=== PATIENT | male | born 1950 | race Caucasian/White ===

== ENCOUNTER → 2019-10-27 | Outpatient (CLI) | payer OTHER | LOC: M LABSMTC 09:40 | PROVIDERS: ATTEND Anesthesiology | DX: Z01.818 Encounter for other preprocedural examination (principal); Z11.59 Encounter for screening for other viral diseases | CPT/HCPCS: C9803; U0003 ==

== ENCOUNTER 2019-10-30 06:31 | Day surgery (SDC) | payer MEDICARE ==
[~2019-10-30] VITALS: Ht 180.3 cm; Wt 89.4 kg
[2019-10-30] MEDS ORDERED: MIDAZOLAM INJ 2MG/2ML VIAL (J2250 PER 1MG) As Ordered ONE (06:44)
[2019-10-30] MEDS ORDERED: propofoL 200 MG/20 ML VIAL As Ordered ONE (06:44)
[2019-10-30] MEDS ORDERED: fentaNYL 250 MCG/5 ML INJECTION (J3010) As Ordered ONE (06:44)
[2019-10-30] MEDS ORDERED: CEFUROXIME 1MG/0.1ML INTRACAMERAL INJ As Ordered ONE (06:47)
[2019-10-30] MEDS ORDERED: DUOVISC (0.50ML VISCOAT/0.55ML PROVISC) OPHTH KIT As Ordered ONE (06:47)
[2019-10-30] MEDS ORDERED: POVIDONE-IODINE 5% OPHTH PREP SOL 30ML As Ordered ONE (06:47)
[2019-10-30] MEDS ORDERED: PHENYLEPHRINE 2.5% OPHTH SOL 2ML OD ONE (07:00)
[2019-10-30] MEDS ORDERED: TROPICAMIDE 1% OPHTH SOLN 2ML OD ONE (07:00)
[2019-10-30] MEDS ORDERED: PROPARACAINE 0.5% OPHTH SOL 15ML OD ONE (07:00)
[2019-10-30] MEDS ORDERED: OFLOXACIN 0.3 % (OCUFLOX) OPTH SOL 5ML OD ONE (07:00)
[2019-10-30] MEDS ORDERED: BSS IRR 500ML/OMIDRIA 4ML IRR BAG (OR ONLY) (J1097 PER ML) As Ordered ONE (08:19)
[2019-10-30 09:05] VITALS: BP 150/70
--- NOTE | 2019-11-04 14:19 | RO ---
DATE OF PROCEDURE: 10/30/2019 PREOPERATIVE DIAGNOSIS: 1. Visually significant nuclear sclerotic cataract right eye. POSTOPERATIVE DIAGNOSIS: 1. Visually significant nuclear sclerotic cataract right eye. PROCEDURE: 1. Cataract extraction with use of phacoemulsification and placement of intraocular lens, [id number] 22.5 D, right eye. SURGEON: Kal Nguyễn DO APPLICATION TRAINER: None. ANESTHESIA: Local with monitored anesthesia care (MAC), with Omidria (4 mL/500 mL) mixed into irrigation solution. COMPLICATIONS: None. POSTOPERATIVE CONDITION: Stable. INDICATIONS FOR SURGERY: 1. Blurred vision affecting patients activities of daily living. DESCRIPTION OF PROCEDURE: The patient was seen in the preoperative area and properly identified. The correct operative eye was identified and marked. The patient received topical anesthetic, antibiotics, and topical dilating drops. The patient was then transferred to the operating room. The correct side was re-identified, and a time-out was performed. The eye was prepped and draped in a sterile fashion. The eyelids were isolated with Tegaderm tape, and the lids were held open with an adjustable speculum. A 1.0 mm paracentesis incision was made. Intraocular preservative-free Shugarcaine was then injected into the anterior chamber. Viscoelastic was then injected into the anterior chamber through the paracentesis. Using a 2.4 mm sharp-tipped keratome, the anterior chamber was entered via a temporal clear cornea incision. A continuous curvilinear capsulorrhexis was created with Utrata forceps. Hydrodissection was performed with balanced salt solution (BSS) on a blunt cannula until the nucleus was able to rotate freely. The crystalline lens was phacoemulsified and aspirated. Irrigation/aspiration was used to remove the cortical material. Cohesive viscoelastic was placed into the capsular bag to deepen it. The implant was placed into the capsular bag and allowed to unfold. Placement was confirmed by visualizing the anterior capsulorrhexis. Irrigation/aspiration was used to remove the viscoelastic. The clear corneal incision was hydrated with BSS on a blunt cannula. The lens was well positioned. The incisions were then tested for leaks and found to be negative. Cefuroxime was injected into the anterior chamber. The eye was then palpated for appropriate pressure and adjusted accordingly with BSS. The eyelid speculum was then carefully removed. A shield was placed over the eye. The patient tolerated the procedure well and was discharged to the recovery unit in a stable condition.
== END 2019-10-30 09:55 | disposition home or self-care (01) ==
LOC: M SDC 06:31
PROVIDERS: ATTEND Ophthalmology
DX: H25.11 Age-related nuclear cataract, right eye (principal)
CPT/HCPCS: 66984; J1097; J2250; J3010; V2632

== ENCOUNTER → 2019-11-10 | Outpatient (CLI) | payer MEDICARE | LOC: M LABSMTC 09:34 | PROVIDERS: ATTEND Anesthesiology | DX: Z01.818 Encounter for other preprocedural examination (principal); Z11.59 Encounter for screening for other viral diseases ==

== ENCOUNTER 2019-11-13 09:06 | Day surgery (SDC) | payer MEDICARE ==
[~2019-11-13] VITALS: Ht 177.8 cm; Wt 88.8 kg
[~2019-11-13 09:06] MED LIST: CEFUROXIME 1MG/0.1ML INTRACAMERAL INJ As Ordered ONE; DUOVISC (0.50ML VISCOAT/0.55ML PROVISC) OPHTH KIT As Ordered ONE; MIDAZOLAM INJ 2MG/2ML VIAL (J2250 PER 1MG) As Ordered ONE; OFLOXACIN 0.3 % (OCUFLOX) OPTH SOL 5ML OS ONE; PHENYLEPHRINE 2.5% OPHTH SOL 2ML OS ONE; POVIDONE-IODINE 5% OPHTH PREP SOL 30ML As Ordered ONE; PROPARACAINE 0.5% OPHTH SOL 15ML OS ONE; TROPICAMIDE 1% OPHTH SOLN 2ML OS ONE; fentaNYL 100 MCG/2 ML INJECTION (J3010) As Ordered ONE
[2019-11-13] MEDS ORDERED: hydrALAZINE 20MG/ML 1ML VIAL (J0360 PER 20MG) As Ordered ONE (10:59)
[2019-11-13] MEDS ORDERED: DUOVISC (0.50ML VISCOAT/0.55ML PROVISC) OPHTH KIT As Ordered ONE (11:17)
[2019-11-13 12:05] VITALS: BP 148/72
== END 2019-11-13 12:28 | disposition home or self-care (01) ==
LOC: M SDC 09:06
PROVIDERS: ATTEND Ophthalmology
DX: H25.12 Age-related nuclear cataract, left eye (principal); R06.83 Snoring; Z98.84 Bariatric surgery status
CPT/HCPCS: 66984; J0360; J2250; J3010; V2632

== ENCOUNTER → 2020-08-20 | Outpatient (CLI) | payer OTHER ==
--- NOTE | 2020-08-27 00:51 | ECWPNPC ---
PATIENT NAME: MICHELLE QUIJANO : 1950 GENDER: MALE VISIT DATE: 08/20/2020 DISCHARGE DATE: 08/20/20 1136 VISIT LOCKED DATE TIME: PHYSICIAN: AKIKO SOUTH RESOURCE: AKIKO SOUTH REASON FOR APPOINTMENT 1. CERVICAL PAIN- DAUGHTER EDUAR ACCOMPANYING HISTORY OF PRESENT ILLNESS DEPRESSION SCREENING: PHQ-2 (2015 EDITION) LITTLE INTEREST OR PLEASURE IN DOING THINGS?NOT AT ALL FEELING DOWN, DEPRESSED, OR HOPELESS?NOT AT ALL TOTAL SCORE0 GENERAL: PLEASANT 69-YEAR-OLD GENTLEMAN REFERRED BY [facility] TO EVALUATE PERSISTENT NECK PAIN. PAIN BEGAN AFTER A FALL INJURY IN 2019. REPORTS EPISODES OF SEVERE NECK STIFFNESS AND PAIN. PAIN CAUSES INTERMITTENT RIGHT ARM AND FINGER NUMBNESS WELL LEFT SHOULDER PAIN. HE IS VERY ACTIVE AND OPERATES HEAVY EQUIPMENT FREQUENTLY. REVIEWED CT SCAN OF CERVICAL SPINE DONE IN THE EMERGENCY ROOM AFTER HIS FALL. HE IS INTERESTED IN DOING PROCEDURES. FALL RISK SCREENING: SCREENING : ONE FALL WITH INJURY IN THE PAST YEAR. PAIN SCREENING: PATIENT HAS A COMPLAINT OF ACUTE OR CHRONIC PAIN :YES LOCATION OF PAIN:NECK INTENSITY OF PAIN (SCALE OF 1 TO 10):3 WHAT DOES YOUR PAIN FEEL LIKE:SHARP, SHOOTING DURATION:CONTINOUS, CONSTANT, ALL DAY PAIN IS INCREASED BY:ACTIVITIES PAIN IS DECREASED BY:OTHERS HEAT NURSING NOTE: - - -. PAIN CENTER INTAKE QUESTIONS: DO YOU HAVE A HISTORY OF MRSA? :NO DO YOU TAKE A BLOOD THINNERS? :NO DO YOU HAVE ANY BLEEDING DISORDERS? :NO ANY NEW NUMBNESS OR WEAKNESS IN YOUR LEGS OR ARMS? :NO ANY PACEMAKER,DEFIBRILLATOR, OR DORSAL COLUMN STIMULATOR? :NO DO YOU HAVE ANY RASHES OR OPEN SORES? :NO ARE YOU ALLERGIC TO IV DYE? :NO ARE YOU DIABETIC? :NO ANY NEW PROBLEMS WITH YOUR MEDICATIONS? :NO HAVE YOU RECEIVED A VACCINE IN THE PAST 30 DAYS? :NO DO YOU PLAN TO RECEIVE A VACCINE IN THE NEXT 21 DAYS? :NO DO YOU NEED ANY PRESCRIPTION? :NO DO YOU TAKE ANY IMMUNOSUPPRESSIVE MEDICATIONS? :NO CURRENT MEDICATIONS TAKING BARIATRIC FUSION - TABLET CHEWABLE DIRECTED ORALLY NOT-TAKING CYCLOBENZAPRINE HCL 5 MG TABLET 1 TABLET AT BEDTIME NEEDED ORALLY NEEDED ONCE A DAY MEDICATION LIST REVIEWED AND RECONCILED WITH THE PATIENT PAST MEDICAL HISTORY ECZEMA ARTHRITIS HERNIA ACUTE VIRAL PHARYNGITIS SUPERFICAL FOREIGN BODY OG LEFT THUMB INITAL ENCOUNTER AACUTE URI NECK SPRAIN NECK PAIN GASTIC BYPAS TYPE 2 DIABETIC ALLERGIES N.K.D.A. SURGICAL HISTORY GASTIC [place] FAMILY HISTORY FATHER: MOTHER: SON(S): ALIVE DAUGHTER(S): ALIVE 3 SISTER(S) . 1 SON(S) , 1 DAUGHTER(S) - HEALTHY. SOCIAL HISTORY GENERAL: TOBACCO USE ARE YOU A:NONSMOKER LATEX QUESTIONNAIRE LATEX ALLERGY : HAVE YOU EVER DEVELOPED ANY TYPE OF REACTION AFTER HANDLING LATEX PRODUCTS SUCH RUBBER GLOVES, CONDOMS, DIAPHRAGMS, BALLOONS, SOCKS, OR UNDERWEAR?NO LATEX ALLERGY : HAVE YOU EVER DEVELOPED ANY TYPE OF REACTION DURING OR AFTER DENTAL APPOINTMENT, VAGINAL/RECTAL EXAMINATION, SURGICAL PROCEDURE, OR ANY OTHER EXPOSURE?NO LATEX RISK : HAVE YOU EVER HAD ANY DIFFICULTY BREATHING OR HIVES AFTER EATING OR HANDLING ANY FRUITS, OR VEGETABLES; SUCH KIWI, BANANAS, STONE FRUITS, OR CHESTNUTSNO LATEX RISK : DO YOU HAVE A PREVIOUS PERSONAL HISTORY OF MORE THAN NINE SURGERIES, SPINA BIFIDA, OR REPEATED CATHERIZATIONS? NO LATEX RISK : ARE YOU FREQUENTLY EXPOSED TO LATEX PRODUCTS IN YOUR OCCUPATION?NO DATE ASKED : 08/20/2020 ALCOHOL USE: NO. RECREATIONAL DRUG USE DRUG USE?NO LEARNING BARRIERS / SPECIAL NEEDS BARRIERS TO LEARNING?NO HEARING IMPAIRED?NO VISION IMPAIRED?NO READING COGNITIVELY IMPAIRED?NO READINESS TO LEARN?YES LEARNING PREFERENCES?NO LEARNING CAPABILITIES PRESENT?YES EMOTIONAL BARRIERS?NO SPECIAL DEVICES?NO PAPERHANGER NEEDED?NO DOMESTIC VIOLENCE DO YOU FEEL SAFE IN YOUR ENVIRONMENT?YES HOSPITALIZATION/MAJOR DIAGNOSTIC PROCEDURE SEE ABOVE REVIEW OF SYSTEMS CONSTITUTIONAL: ANY RECENT FEVER NO . CHILLS NO . WEIGHT CHANGE OF UNKNOWN REASONS NO . MUSCULOSKELETAL: ANY UNUSUAL JOINT PAIN OR SWELLING NOT MENTIONED NO . SYSTEMIC LUPUS NO . ANY NEUROMUSCULAR DISORDER NOT MENTIONED NO . LYME DISEASE NO . GASTROENTEROLOGY: ANY NEW CHANGE IN BOWEL CONTROL? NO . HISTORY OF LIVER DISORDER NOT MENTIONED NO . HISTORY OF UNUSUAL ABDOMINAL PAIN OR CRAMPING NOT MENTIONED NO . NO CONSTIPATION. GENITOURINARY: ANY NEW CHANGE IN BLADDER CONTROL? NO . ANY RENAL/KIDNEY CONDITON NOT MENTIONED NO . NEUROLOGY: HISTORY OF TBI NOT MENTIONED NO . OTHER NEW NUMBNESS OR PAIN PATTERNS NOT MENTIONED NO . NEW ONSET DIZZINESS OR NEUROLOGICAL CHANGES NOT MENTIONED NO . HISTORY OF SEVERE HEADACHES NOT MENTIONED NO . HISTORY OF STROKE OR NEUROLOGICAL DISORDER NOT MENTIONED NO . CARDIOLOGY: HEART SURGERY NO . CONGESTIVE HEART FAILURE/FLUID OVERLOAD NOT MENTIONED NO . HISTORY OF CHEST PAIN,IRREGULAR HEART BEAT NOT MENTIONED NO . RESPIRATORY: SHORTNESS OF BREATH ON EXERTION, WHEEZES, UNUSUAL COUGH NOT MENTIONED NO . ENDOCRINOLOGY: ADRENAL GLAND OR THYROID DISORDERS NOT MENTIONED NO . UNUSUAL URINATION, DIZZINESS OR LETHARGY NOT MENTIONED NO . VITAL SIGNS WT 204 LBS, HT 5'10, BMI 39.84 INDEX, BP 177/80 MM HG, HR 56 /MIN, RR 18 /MIN, TEMP 97.2 F, OXYGEN SAT % 97%, SAFE IN ENV? (Y/N) YEST.JACOB GRIDER. EXAMINATION GENERAL EXAMINATION: GENERALNO ACUTE DISTRESS, WELL NOURISHED AND HYDRATED. PSYCHAPPROPRIATE MOOD AND AFFECT . NECK:NO LYMPHADENOPATHY, SUPPLE, NO THYROMEGALLY, NO JVD OR BRUITS. LUNGS:CLEAR TO AUSCULTATION BILATERALLY, NO WHEEZES, RHONCHI, RALES. HEART:NO MURMURS, REGULAR RATE AND RHYTHM. MUSCULOSKELETAL: MUSCLE STRENGTH TESTING 5/5 BILATERAL UPPER EXTREMITIES.EQUAL STRONG WRAPPER REWINDER STRENGTH BILATERAL HANDS. CERVICAL:TENDERNESS NOTED OVER CERVICAL SPINE WITH RANGE OF JOINT MOTION OF THE NECK . ASSESSMENTS CERVICALGIA - M54.2 (PRIMARY) TREATMENT CERVICALGIA [facility] MRI SPINE, CERVICAL WITHOUT [id number] NOTES: HAS PERSISTENT NECK PAIN AFTER A FALL INJURY 2 YEARS AGO. HAS FAILED CONSERVATIVE TREATMENT TO INCLUDE PHYSICAL THERAPY AND NSAIDS. TODAY I WILL ORDER AN MRI OF THE CERVICAL SPINE TO EVALUATE FOR INTERVENTIONAL TREATMENT OPTIONS. FOLLOW-UP WILL BE A TELEMED VISIT. PROCEDURE CODES FA211 ESTABILISHED PATIENT [facility] CHARGE DISPOSITION & COMMUNICATION FOLLOW UP 6 WEEKS (REASON: [facility]/JODI/DR. WATTERS F/U-TELEMED TO REVIEW CERVICAL MRI) ELECTRONICALLY SIGNED BY WALTER MOREJON ON 08/26/2020 AT 03:12 PM EST DISCLAIMER : THIS IS A VISIT SUMMARY EXTRACTED FROM THE [employer] CHART. IT IS NOT A COPY OF THE [employer] PROGRESS NOTE. SURJIT
== END ==
LOC: M PAIN 11:00
PROVIDERS: ATTEND Nurse Practitioner Family
DX: M54.2 Cervicalgia (principal); Z98.84 Bariatric surgery status; Z79.899 Other long term (current) drug therapy

== ENCOUNTER → 2020-09-15 | Outpatient (CLI) | payer MEDICARE ==
--- NOTE | 2020-09-15 14:19 | REPVR ---
PROCEDURE INFORMATION: Exam: MR Cervical Spine Without Contrast Exam date and time: 09/15/2020 11:44 AM Age: 69 years old Clinical indication: Pain; Cervicalgia TECHNIQUE: Imaging protocol: Multiplanar magnetic resonance images of the cervical spine without contrast. COMPARISON: No relevant prior studies available. FINDINGS: Vertebrae: There is straightening of the cervical spine which could be secondary to positioning or muscle spasm. The cervical vertebral bodies are normal height and alignment.No acute fracture or dislocation is seen.The atlantoaxial articulation is normal. Spinal cord: The cervical spinal cord is normal in thickness and signal intensity.There is no cord compression or intramedullary signal abnormality. Spinal epidural space: There is no evidence for epidural mass or hemorrhage. C2-C3: No significant disc disease. No significant spinal stenosis. C3-C4: There is no significant degenerative disc herniation.The spinal canal and neural foramina are patent and without significant stenosis. C4-C5: There is no significant degenerative disc herniation.The spinal canal and neural foramina are patent and without significant stenosis. C5-C6: Moderately reduced in height and T2 signal indicating degeneration. Small diffuse posterior herniation.There is bilateral uncovertebral hypertrophic changes.The facet joints demonstrate mild degenerative hypertrophy and sclerosis.There is mild spinal canal narrowing, with an AP canal dimension of 10 mm. There is mild bilateral foraminal stenosis. C6-C7: Moderately reduced in height and T2 signal indicating degeneration. Small diffuse posterior herniation. Mild facet arthropathy.There is bilateral uncovertebral hypertrophic changes.There is mild spinal canal narrowing, with an AP canal dimension of 10 mm. There is moderate left foraminal stenosis. 9 mm rounded T2 hyperintense perineural cyst is seen in the right neural foramen causing severe right foraminal stenosis and compression of the exiting nerve root. C7-T1: There is no significant degenerative disc herniation.The spinal canal and neural foramina are patent and without significant stenosis. Soft tissues: The prevertebral soft tissues appear normal. Brain: The visualized brain parenchyma is unremarkable. Vertebral arteries: Expected flow voids in the vertebral arteries. IMPRESSION: MRI of the cervical spine reveals multilevel degenerative spondylitic changes and degenerative disc disease as described above. Electronically signed by: Los Russo On 09/15/2020 14:19:49 PM
== END ==
LOC: M RAD 10:25
PROVIDERS: ATTEND Nurse Practitioner Family
DX: M47.812 Spondylosis without myelopathy or radiculopathy, cervical region (principal); M50.30 Other cervical disc degeneration, unspecified cervical region

== ENCOUNTER → 2020-09-21 | Outpatient (CLI) | payer MEDICARE ==
--- NOTE | 2020-09-28 03:49 | ECWPNPC ---
PATIENT NAME: MICHELLE QUIJANO : 1950 GENDER: MALE VISIT DATE: 09/21/2020 DISCHARGE DATE: 09/21/20 1538 VISIT LOCKED DATE TIME: PHYSICIAN: AKIKO SOUTH RESOURCE: AKIKO SOUTH REASON FOR APPOINTMENT 1. REVIEW MRI C SPINE - OK PER AKIKO HISTORY OF PRESENT ILLNESS GENERAL: HERE FOR F/U OF NECK PAIN AND TO REVIEW CERVICAL MRI.CONTINUES WITH SEVERE NECK PAIN AND STIFFNESS.PAIN RADIATES INTO RIGHT ARM AND FINGERS AND LEFT SHOULDER.PAIN IS AGGREVATED WITH ROJM OF NECK.CERVICAL IMAGING SHOWING MULTI LEVEL CERVICAL FACET ARTHROPATHY WITH DISC PROTRUSION.DISCUSSED CERVICAL EPIDURAL STEROID INJECTION. -. FALL RISK SCREENING: SCREENING : NO FALLS REPORTED IN THE LAST YEAR. PAIN SCREENING: PATIENT HAS A COMPLAINT OF ACUTE OR CHRONIC PAIN :YES LOCATION OF PAIN:NECK INTENSITY OF PAIN (SCALE OF 1 TO 10):3 WHAT DOES YOUR PAIN FEEL LIKE:SORE, SHOOTING DURATION:CONTINOUS, CONSTANT, ALL DAY PAIN IS INCREASED BY:ACTIVITIES PAIN IS DECREASED BY:OTHERS HEAT NURSING NOTE: -. PAIN CENTER INTAKE QUESTIONS: DO YOU HAVE A HISTORY OF MRSA? :NO DO YOU TAKE A BLOOD THINNERS? :NO DO YOU HAVE ANY BLEEDING DISORDERS? :NO ANY NEW NUMBNESS OR WEAKNESS IN YOUR LEGS OR ARMS? :NO ANY PACEMAKER,DEFIBRILLATOR, OR DORSAL COLUMN STIMULATOR? :NO DO YOU HAVE ANY RASHES OR OPEN SORES? :NO ARE YOU ALLERGIC TO IV DYE? :NO ARE YOU DIABETIC? :NO ANY NEW PROBLEMS WITH YOUR MEDICATIONS? :NO HAVE YOU RECEIVED A VACCINE IN THE PAST 30 DAYS? :NO DO YOU PLAN TO RECEIVE A VACCINE IN THE NEXT 21 DAYS? :NO DO YOU NEED ANY PRESCRIPTION? :NO DO YOU TAKE ANY IMMUNOSUPPRESSIVE MEDICATIONS? :NO CURRENT MEDICATIONS TAKING BARIATRIC FUSION - TABLET CHEWABLE DIRECTED ORALLY NOT-TAKING CYCLOBENZAPRINE HCL 5 MG TABLET 1 TABLET AT BEDTIME NEEDED ORALLY NEEDED ONCE A DAY MEDICATION LIST REVIEWED AND RECONCILED WITH THE PATIENT PAST MEDICAL HISTORY ECZEMA ARTHRITIS HERNIA ACUTE VIRAL PHARYNGITIS SUPERFICAL FOREIGN BODY OG LEFT THUMB INITAL ENCOUNTER AACUTE URI NECK SPRAIN NECK PAIN GASTIC BYPAS TYPE 2 DIABETIC ALLERGIES N.K.D.A. SOCIAL HISTORY GENERAL: TOBACCO USE ARE YOU A:NONSMOKER LATEX QUESTIONNAIRE LATEX ALLERGY : HAVE YOU EVER DEVELOPED ANY TYPE OF REACTION AFTER HANDLING LATEX PRODUCTS SUCH RUBBER GLOVES, CONDOMS, DIAPHRAGMS, BALLOONS, SOCKS, OR UNDERWEAR?NO LATEX ALLERGY : HAVE YOU EVER DEVELOPED ANY TYPE OF REACTION DURING OR AFTER DENTAL APPOINTMENT, VAGINAL/RECTAL EXAMINATION, SURGICAL PROCEDURE, OR ANY OTHER EXPOSURE?NO LATEX RISK : HAVE YOU EVER HAD ANY DIFFICULTY BREATHING OR HIVES AFTER EATING OR HANDLING ANY FRUITS, OR VEGETABLES; SUCH KIWI, BANANAS, STONE FRUITS, OR CHESTNUTSNO LATEX RISK : DO YOU HAVE A PREVIOUS PERSONAL HISTORY OF MORE THAN NINE SURGERIES, SPINA BIFIDA, OR REPEATED CATHERIZATIONS? NO LATEX RISK : ARE YOU FREQUENTLY EXPOSED TO LATEX PRODUCTS IN YOUR OCCUPATION?NO DATE ASKED : 09/21/2020 ALCOHOL USE: NO. RECREATIONAL DRUG USE DRUG USE?NO LEARNING BARRIERS / SPECIAL NEEDS BARRIERS TO LEARNING?NO HEARING IMPAIRED?NO VISION IMPAIRED?NO READING COGNITIVELY IMPAIRED?NO READINESS TO LEARN?YES LEARNING PREFERENCES?NO LEARNING CAPABILITIES PRESENT?YES EMOTIONAL BARRIERS?NO SPECIAL DEVICES?NO INSURANCE INSTRUCTOR NEEDED?NO DOMESTIC VIOLENCE DO YOU FEEL SAFE IN YOUR ENVIRONMENT?YES REVIEW OF SYSTEMS CONSTITUTIONAL: ANY RECENT FEVER NO . CHILLS NO . WEIGHT CHANGE OF UNKNOWN REASONS NO . GASTROENTEROLOGY: NEW UNEXPLAINABLE CHANGES IN BOWEL CONTROL NO . CONSTIPATION NO . GENITOURINARY: ANY NEW CHANGE IN BLADDER CONTROL? NO . NEUROLOGY: NEW ONSET DIZZINESS OR NEUROLOGICAL CHANGES NOT MENTIONED NO . NEW NUMBNESS OR PAIN PATTERNS NOT MENTIONED AND PERTINENT TO TODAY'S VISIT NO . CARDIOLOGY: NEW CHEST PRESSURE NO . PATIENT DENIES NO . RESPIRATORY: UNEXPLAINABLE COUGH NO . NEW SHORTNESS OF BREATH NO . VITAL SIGNS WT 205 LBS, HT 5'10, BMI 40.03 INDEX, BP 161/74 MM HG, HR 60 /MIN, RR 18 /MIN, TEMP 96.5 F, OXYGEN SAT % 96%, SAFE IN ENV? (Y/N) YEST.JACOB GRIDER. EXAMINATION GENERAL EXAMINATION: GENERAL AWAKE,ALERT ,PLEAASANT . PSYCH AFFECT NORMAL . LUNGS: LUNG FERREIRA ARE CLEAR TO AUSCULTATION BILATERALLY. GOOD MOVEMENT OF AIR . HEART: S1, S2 IN A REGULAR RATE AND RHYTHM. NO SIGNIFICANT MURMURS, RUBS OR GALLOPS NOTED . CERVICAL: TENDER OVER CERVICAL SPINE AND CERVICAL PARASPINALS.. DIAGNOSTIC TESTS REVIEWED MRI C/SPINE-2020. 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 PROCEDURE CODES FA211 ESTABILISHED PATIENT [facility] CHARGE DISPOSITION & COMMUNICATION FOLLOW UP POST PROCEDURE (REASON: CERVICAL EPIDURAL STEROID INJECTION) ELECTRONICALLY SIGNED BY WALTER MOREJON ON 09/27/2020 AT 06:08 AM EDT DISCLAIMER : THIS IS A VISIT SUMMARY EXTRACTED FROM THE [employer] CHART. IT IS NOT A COPY OF THE [employer] PROGRESS NOTE. SURJIT
== END ==
LOC: M PAIN 15:00
PROVIDERS: ATTEND Nurse Practitioner Family
DX: M50.10 Cervical disc disorder with radiculopathy, unspecified cervical region (principal); Z98.84 Bariatric surgery status; E66.01 Morbid (severe) obesity due to excess calories; Z68.41 Body mass index [BMI] 40.0-44.9, adult; Z79.899 Other long term (current) drug therapy

== ENCOUNTER → 2020-09-25 | Outpatient (CLI) | payer MEDICARE | LOC: M LABSMTC 09:50 | PROVIDERS: ATTEND Anesthesiology | DX: Z11.52 Encounter for screening for COVID-19 (principal) ==

== ENCOUNTER → 2020-09-30 | Outpatient (CLI) | payer MEDICARE ==
[~2020-09-30] MED LIST changes: -CEFUROXIME 1MG/0.1ML INTRACAMERAL INJ As Ordered ONE; -DUOVISC (0.50ML VISCOAT/0.55ML PROVISC) OPHTH KIT As Ordered ONE; +ISOVUE-M 300 61% 15ML VIAL As Ordered ONE; +LIDOCAINE 1% SDV 30ML VIAL As Ordered ONE; -MIDAZOLAM INJ 2MG/2ML VIAL (J2250 PER 1MG) As Ordered ONE; -OFLOXACIN 0.3 % (OCUFLOX) OPTH SOL 5ML OS ONE; -PHENYLEPHRINE 2.5% OPHTH SOL 2ML OS ONE; -POVIDONE-IODINE 5% OPHTH PREP SOL 30ML As Ordered ONE; -PROPARACAINE 0.5% OPHTH SOL 15ML OS ONE; -TROPICAMIDE 1% OPHTH SOLN 2ML OS ONE; +diazePAM 5MG TABLET As Ordered ONE; -fentaNYL 100 MCG/2 ML INJECTION (J3010) As Ordered ONE; +methylPREDNISolone SUSP 40MG/ML 1ML VIAL (DEPO MEDROL) As Ordered ONE; +oxyCODONE 5MG TAB As Ordered ONE
--- NOTE | 2020-09-30 15:22 | REP ---
INDICATION: CERVICAL EPIDURAL STEROID INJECTION/PAIN. COMPARISON: None. TECHNIQUE: Three views. 13.5 seconds of fluoroscopy time is reported. FINDINGS: A sequence of 3 last image hold fluoroscopically obtained spot radiograph(s) of the cervical spine document(s) needle position(s) and contrast injection associated with injection procedure. IMPRESSION: Procedural imaging. <Electronically signed by Mark Fernandes > 09/30/20 [id number]
--- NOTE | 2020-10-01 23:33 | ECWPNPC ---
PATIENT NAME: MICHELLE QUIJANO : 1950 GENDER: MALE VISIT DATE: 09/30/2020 DISCHARGE DATE: 09/30/20 0000 VISIT LOCKED DATE TIME: PHYSICIAN: ROBI THOMAS MD RESOURCE: ROBI THOMAS MD REASON FOR APPOINTMENT 1. CERVICAL EPIDURAL STEROID INJECTION HISTORY OF PRESENT ILLNESS GENERAL: -. FALL RISK SCREENING: SCREENING : NO FALLS REPORTED IN THE LAST YEAR. PAIN SCREENING: PATIENT HAS A COMPLAINT OF ACUTE OR CHRONIC PAIN :YES LOCATION OF PAIN:NECK, BOTH SHOULDERS INTENSITY OF PAIN (SCALE OF 1 TO 10):3 WHAT DOES YOUR PAIN FEEL LIKE:SHARP DURATION:INTERMITTENT PAIN IS INCREASED BY:ACTIVITIES PAIN IS DECREASED BY: NOTHING NURSING NOTE: -. PAIN CENTER INTAKE QUESTIONS: DO YOU HAVE A HISTORY OF MRSA? :NO DO YOU TAKE A BLOOD THINNERS? :NO DO YOU HAVE ANY BLEEDING DISORDERS? :NO ANY NEW NUMBNESS OR WEAKNESS IN YOUR LEGS OR ARMS? :NO ANY PACEMAKER,DEFIBRILLATOR, OR DORSAL COLUMN STIMULATOR? :NO DO YOU HAVE ANY RASHES OR OPEN SORES? :NO ARE YOU ALLERGIC TO IV DYE? :NO ARE YOU DIABETIC? :YES FSBS 98 AT 0700 ANY NEW PROBLEMS WITH YOUR MEDICATIONS? :NO HAVE YOU RECEIVED A VACCINE IN THE PAST 30 DAYS? :NO DO YOU PLAN TO RECEIVE A VACCINE IN THE NEXT 21 DAYS? :NO DO YOU TAKE ANY IMMUNOSUPPRESSIVE MEDICATIONS? :NO ANY HISTORY OF SEIZURES? :NO ANY HISTORY OF CARDIAC ISSUES OR EVENTS? :NO DO YOU HAVE ANY KIDNEY OR LIVER DISEASE? :NO DO YOU HAVE SLEEP APNEA? :NO ANY RECENT HEAD INJURY? :NO DO YOU HAVE ANY NEW INFECTIONS? :NO IS THERE A CHANCE YOU COULD BE ? :NO ARE YOU BREAST FEEDING? :NO WHEN DID YOU LAST EAT? : -0709/30/20 WHEN DID YOU LAST DRINK? : -69909/30/20 WHAT DID YOU LAST DRINK? : COFFEE NAME OF PERSON DRIVING YOU HOME? : - YURIY DO YOU HAVE ANY OTHER QUESTIONS OR CONCERNS? : -NO CURRENT MEDICATIONS NOT-TAKING CYCLOBENZAPRINE HCL 5 MG TABLET 1 TABLET AT BEDTIME NEEDED ORALLY NEEDED ONCE A DAY NOT-TAKING BARIATRIC FUSION - TABLET CHEWABLE DIRECTED ORALLY MEDICATION LIST REVIEWED AND RECONCILED WITH THE PATIENT PAST MEDICAL HISTORY ECZEMA ARTHRITIS HERNIA ACUTE VIRAL PHARYNGITIS SUPERFICAL FOREIGN BODY OG LEFT THUMB INITAL ENCOUNTER AACUTE URI NECK SPRAIN NECK PAIN GASTIC BYPAS TYPE 2 DIABETIC ALLERGIES N.K.D.A. FAMILY HISTORY FATHER: MOTHER: SON(S): ALIVE DAUGHTER(S): ALIVE 3 SISTER(S) . 1 SON(S) , 1 DAUGHTER(S) - HEALTHY. SOCIAL HISTORY GENERAL: TOBACCO USE ARE YOU A:NONSMOKER LATEX QUESTIONNAIRE LATEX ALLERGY : HAVE YOU EVER DEVELOPED ANY TYPE OF REACTION AFTER HANDLING LATEX PRODUCTS SUCH RUBBER GLOVES, CONDOMS, DIAPHRAGMS, BALLOONS, SOCKS, OR UNDERWEAR?NO LATEX ALLERGY : HAVE YOU EVER DEVELOPED ANY TYPE OF REACTION DURING OR AFTER DENTAL APPOINTMENT, VAGINAL/RECTAL EXAMINATION, SURGICAL PROCEDURE, OR ANY OTHER EXPOSURE?NO DATE ASKED : 09/21/2020 LATEX RISK : HAVE YOU EVER HAD ANY DIFFICULTY BREATHING OR HIVES AFTER EATING OR HANDLING ANY FRUITS, OR VEGETABLES; SUCH KIWI, BANANAS, STONE FRUITS, OR CHESTNUTSNO LATEX RISK : DO YOU HAVE A PREVIOUS PERSONAL HISTORY OF MORE THAN NINE SURGERIES, SPINA BIFIDA, OR REPEATED CATHERIZATIONS? NO LATEX RISK : ARE YOU FREQUENTLY EXPOSED TO LATEX PRODUCTS IN YOUR OCCUPATION?NO ALCOHOL USE: NO. RECREATIONAL DRUG USE DRUG USE?NO LEARNING BARRIERS / SPECIAL NEEDS BARRIERS TO LEARNING?NO HEARING IMPAIRED?NO VISION IMPAIRED?NO READING COGNITIVELY IMPAIRED?NO READINESS TO LEARN?YES LEARNING PREFERENCES?NO LEARNING CAPABILITIES PRESENT?YES EMOTIONAL BARRIERS?NO SPECIAL DEVICES?NO ORACLE BPM DEVELOPER NEEDED?NO DOMESTIC VIOLENCE DO YOU FEEL SAFE IN YOUR ENVIRONMENT?YES VITAL SIGNS WT 200.4 LBS, HT 70 IN, BMI 28.75 INDEX, BP 171/77 MM HG, HR 50 /MIN, RR 18 /MIN, TEMP 95.6 F, OXYGEN SAT % 100%, SAFE IN ENV? (Y/N) YES, NA INITIALS AW 1309, REVIEWED BY: Fran CHIANG RN BSN. EXAMINATION GENERAL: A HISTORY AND PHYSICAL EXAM ON THE PATIENT WAS DONE ON 09/21/2020(DATE OF ORIGINAL ASSESSMENT) IN PREPARATION OF SURGERY/PROCEDURE. I HAVE NOW REASSESSED THIS PATIENT'S HEALTH STATUS AND PERFORMED AN UPDATED EXAM TODAY. ALL CHANGES IN THE PATIENT'S HISTORY, PHYSICAL EXAM, PRE-EXISTING CONDITONS, AND INDICATIONS/CONTRAINDICATIONS TO THE PLANNED PROCEDURE AND ANESTHESIA ARE DOCUMENTED AND EVALUATED BELOW. I ATTEST TO THE ADEQUACY AND APPROPRIATENESS OF MY ASSESSMENT, AND CONFIRM THE NECESSITY FOR THE PLANNED PROCEDURE. THE PATIENT IS ALERT, ORIENTED TIMES THREE AND COOPERATIVE. LUNGS ARE CLEAR TO AUSCULTATION. HEART SHOWS REGULAR RHYTHM, NO MURMURS AND NO GALLOPS. 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 АНДРЕЙJUAN 09/30/2020 2:00:38 PM > ADMINISTERED. SALINE LOCKSHILODARIANADARRONJUAN 09/30/2020 3:03:26 PM > TWO ATTEMPTS BY SMOOTH PLATER, POSITIVE FLASH ON BOTH ATTEMPTS, UNABLE TO ADVANCE IV CATHETER, DSD APPLIED. PATIENT TOLERATED PROCEDURE WELL. АНДРЕЙJUAN 09/30/2020 3:35:09 PM > 22G SALINE LOCK OBTAINED BY Tomas ROBERT RN ON FIRST ATTEMPT, POSITIVE FLASH, POSITIVE FLUSH, NO S/S OF INFILTRATION, PATIENT TOLERATED PROCEDURE WELL. MEDICATION: VALIUM TAB 10MG ORALLY (DIAZEPAM)MILTON ROBERT RN 09/30/2020 1:56:27 PM > VERIFIED. JUAN CHIANG 09/30/2020 2:00:58 PM > ADMINISTERED. OTHERS NOTES: PAT COMPLETE 09/28/20 Dee Dee CUEVAS RN BSN. PROCEDURES PAIN NURSING RECORD PROCEDURE IN ROOM 1445, PHYSICIAN IN ROOM 1457, START 1503, FINISH 1509, PHYSICIAN OUT OF ROOM 1510, OUT OF ROOM 1520, ECG NORMAL SINUS, PATIENT SHIELDED YES, SAFETY STRAP YES, PREP BETADINE Fran CHIANG RN, DRESSING OLIVA THOMAS LOC: DARRON CHIANGISSA 09/30/2020 2:57:39 PM > 1. ALERT, ORIENTED LOC REMAINED AT BASELINE THROUGHOUT THE PROCEDURE RESP: DARRON CHIANGISSA 09/30/2020 2:57:39 PM > 1. REGULAR, NO DYSPNEA COLOR: DARRON CHIANGISSA 09/30/2020 2:57:39 PM > 1. PINK SKIN: АНДРЕЙJUAN 09/30/2020 2:57:39 PM > 1. WARM, DRY POSITION: JUAN CHIANG 09/30/2020 2:57:39 PM > 1. PRONE VITALS: JUAN CHIANG 09/30/2020 2:52:33 PM > 166/85, 54, 96% RA, 18. JUAN CHIANG 09/30/2020 3:03:09 PM > 180/88, 53, 100% RA, 18. JUAN CHIANG 09/30/2020 3:04:35 PM > 175/91, 55, 100% RA, 18. JUAN CHIANG 09/30/2020 3:15:09 PM > 181/81, 56, 100% RA, 18. JUAN CHIANG 09/30/2020 3:25:32 PM > POST PROCEDURE 180/88, 57, 100% RA, 18. COMPLETION OF PROCEDURE APPOINTMENT: POST PAIN 0/10, DRESSING SITE DRY AND INTACT, IV N/A, GAIT STEADY, TEACHING COMPLETED, PATIENT ACKNOWLEDGES UNDERSTANDING YES, PROCEDURE APPOINTMENT COMPLETED AT 1530 BY: Fran CHIANG RN PN CERVICAL EPIDURAL PRE PROCEDURE DIAGNOSIS CERVICAL DISC DISORDER WITH RADICULOPATHY POST PROCEDURE DIAGNOSIS CERVICAL DISC DISORDER WITH RADICULOPATHY PROCEDURE CERVICAL EPIDURAL STEROID INJECTION UNDER FLUOROSCOPIC GUIDANCE SURGEON DR. ROBI THOMAS COAL PIPELINE OPERATOR NONE ANESTHESIA LOCAL PRE PROCEDURE NOTE THE PATIENT HAS A HISTORY OF CHRONIC CERVICAL PAIN. I EVALUATED THE PATIENT AND REVIEWED THE CHART. I WENT OVER THE RISKS, ALTERNATIVES, AND BENEFITS ASSOCIATED WITH THIS PROCEDURE. THE PATIENT WOULD LIKE TO PROCEED AND GIVE CONSENT TO PERFORMED THE PROCEDURE. THE PATIENT DENIES UNEXPLAINABLE WEIGHT LOSS, FEVER, CHILLS, OR NEW CHANGES IN URINARY OR BOWEL CONTROL. THE PATIENT IS COVID-19 NEGATIVE DESCRIPTION OF PROCEDURE THE PATIENT WAS BROUGHT TO THE PROCEDURE ROOM AND PLACED IN THE PRONE POSITION. THE CERVICOTHORACIC AREA WAS CLEANED WITH BETADINE SOLUTION AND DRAPED ASEPTICALLY. THE PROCEDURE WAS DONE UNDER STERILE CONDITIONS. A TIMEOUT WAS PERFORMED WHERE THE CONSENTED SITE WAS VERIFIED WITH EVERYONE IN THE ROOM. UNDER FLUOROSCOPIC GUIDANCE, THE TARGET WAS SELECTED AT THE INTERLAMINAR LEVEL OF C7-T1. I CONFIRMED AGAIN THE SITE OF TARGET. LIDOCAINE WAS USED TO NUMB THE SKIN AND THE SUBCUTANEOUS TISSUE BELOW IT. EPIDURAL TUOHY NEEDLE, 17-GAUGE, WAS ADVANCED UNDER FLUOROSCOPIC GUIDANCE AND FOLLOWING PATIENT FEEDBACK UNTIL THE EPIDURAL SPACE WAS REACHED 5 CM DEEP INTO THE SKIN BY THE LOSS OF RESISTANCE TECHNIQUE. ISOVUE-M DYE 30%, 0.25 ML, WAS INJECTED SHOWING ADEQUATE SPREAD OF THE DYE. THEN, A SOLUTION OF 3 ML OF NORMAL SALINE WITH DEPO-MEDROL 40MG WAS INJECTED SLOWLY FOLLOWING PATIENT FEEDBACK. THE MEDICATIONS WERE VERIFIED WITH THE NURSE. THERE WAS NO EVIDENCE OF BLOOD, PARESTHESIA OR CEREBROSPINAL FLUID DURING THE PROCEDURE. ESTIMATED BLOOD LOSS WAS LESS THAN 5 ML. THE PATIENT WAS SENT TO THE RECOVERY ROOM. THE PATIENT WAS MOVING THE EXTREMITIES AND DOING WELL. THERE WERE NO COMPLICATIONS DURING THE PROCEDURE. FLUOROSCOPY TIME WAS 13 SECONDS POST PROCEDURE NOTE THE PATIENT WILL BE SEEN IN A FOLLOW UP IN THE NEXT FEW WEEKS. I AM LOOKING FOR LONG LASTING RELIEF FOR THE PATIENT WITH THIS INTERVENTION. INSTRUCTIONS WERE GIVEN, QUESTIONS WERE ANSWERED, AND THE PATIENT EXPRESSED UNDERSTANDING AND AGREES WITH THE PLAN. I, IVÁN WISEMAN, DOCUMENTED THE ABOVE INFORMATION ACTING A SCRIBE FOR DR. THOMAS. I HAVE REVIEWED THE ABOVE DOCUMENT, WRITTEN BY IVÁN WISEMAN, DISTRIBUTION OPERATION SUPERVISOR, AND I VERIFY THAT IT IS ACCURATE PROCEDURE CODES 58335 CERVICAL/THORACIC W/ IMAGING DISPOSITION & COMMUNICATION FOLLOW UP FOLLOW UP WITH SENIOR IT SECURITY ANALYST (REASON: POST CERVICAL EPIDURAL STEROID INJECTION) ELECTRONICALLY SIGNED BY ROBI THOMAS MD, MD ON 10/01/2020 AT 12:33 PM EDT DISCLAIMER : THIS IS A VISIT SUMMARY EXTRACTED FROM THE [employer] CHART. IT IS NOT A COPY OF THE [employer] PROGRESS NOTE. HENNAD
== END ==
LOC: M PAIN 13:20
PROVIDERS: ATTEND Anesthesiology
DX: M50.10 Cervical disc disorder with radiculopathy, unspecified cervical region (principal); E11.9 Type 2 diabetes mellitus without complications; Z98.84 Bariatric surgery status; Z79.899 Other long term (current) drug therapy
CPT/HCPCS: 62321; J1030; Q9967

== ENCOUNTER 2023-02-05 12:45 | Inpatient (IN) | payer OTHER, MEDICARE ==
[~2023-02-05] VITALS: Ht 177.8 cm; Wt 95.8 kg
[2023-02-05] MEDS ORDERED: AMLO1TAB24 PO (13:07)
[2023-02-05] MEDS ORDERED: ONDANSETRON 4MG 2ML VIAL IV ONE (14:00)
[2023-02-05] MEDS: MORPHINE 4 MG/ML 1ML VIAL IV PRN ×2 (14:20→17:10)
[2023-02-05] MEDS ORDERED: ISOVUE-370 76% 100ML VIAL As Ordered ONE (14:45)
[2023-02-05] MEDS ORDERED: diazePAM 10MG/2ML SYRINGE IV ONE (16:10)
[2023-02-05] MEDS ORDERED: oxyCODONE 5MG TAB PO PRN (18:20)
[2023-02-05] MEDS ORDERED: ACETAMINOPHEN TAB 650MG DOSE (2X325MG) PO PRN (18:20)
[2023-02-05] MEDS ORDERED: ACETAMINOPHEN 500 MG TAB PO ONE (18:20)
[2023-02-05] MEDS ORDERED: traMADol 50 MG TAB PO PRN (18:20)
[2023-02-05] MEDS ORDERED: KETOROLAC 30 MG/ML 1ML VIAL IV ONE (18:20)
[2023-02-05] MEDS ORDERED: carisoprodoL 350 MG TAB PO ONE (18:20)
[2023-02-05] MEDS ORDERED: PILL CUTTER 1 EACH XX PRN (18:45)
[2023-02-05] MEDS ORDERED: MED REC IN PROGRESS XX SCH (19:25)
[2023-02-05] MEDS ORDERED: DOXY100T PO (19:48)
[2023-02-05] MEDS ORDERED: HOME MED LIST COMPLETE! XX SCH (19:50)
[2023-02-05 20:25] VITALS: BP 120/63; TEMP 98.1; O2SAT 97
[2023-02-05] MEDS: SENOKOT S TAB PO SCH (20:35)
[2023-02-05] MEDS: tiZANidine 4 MG TAB PO SCH (20:35)
[2023-02-05] MEDS: ACETAMINOPH W/CODEINE #3 TAB UD PO SCH (20:36)
[2023-02-05] MEDS: LIDOCAINE 5% (LIDODERM) PATCH TD SCH (20:37)
[2023-02-06] MEDS: KETOROLAC 30 MG/ML 1ML VIAL IV SCH ×4 (01:43→20:27)
[2023-02-06 06:00] VITALS: BP 114/62; TEMP 97.9; O2SAT 97
[2023-02-06 06:04] LABS: HEMATOCRIT 39.6 % (42.0-52.0); MEAN CORPUSCULAR HEMOGLOBIN 30.7 pg (27.0-33.0); MEAN CORPUSCULAR HGB CONC 32.8 g/dl (32.0-36.5); MEAN CORPUSCULAR VOLUME 93.4 fl (80.0-96.0); PLATELET COUNT, AUTOMATED 207 10^3/uL (150-450); RED BLOOD COUNT 4.24 10^6/uL (4.30-6.10); WHITE BLOOD COUNT 8.2 10^3/uL (4.0-10.0)
[2023-02-06 06:27] LABS: BLOOD UREA NITROGEN 15 MG/DL (9-23); CALCIUM LEVEL 8.3 MG/DL (8.3-10.6); CARBON DIOXIDE LEVEL 27 MMOL/L (20-31); CHLORIDE LEVEL 105 MMOL/L (98-107); CREATININE FOR GFR 0.87 MG/DL (0.70-1.30); GLOMERULAR FILTRATION RATE > 60.0 (>42); GLUCOSE, FASTING 78 MG/DL (74-106); POTASSIUM SERUM 4.1 MMOL/L (3.5-5.1); SODIUM LEVEL 140 MMOL/L (136-145)
[2023-02-06] MEDS: SENOKOT S TAB PO SCH ×2 (08:35→20:27)
[2023-02-06] MEDS: tiZANidine 4 MG TAB PO SCH ×3 (08:35→20:28)
[2023-02-06] MEDS: ACETAMINOPH W/CODEINE #3 TAB UD PO SCH (08:35)
[2023-02-06] MEDS: DOXYCYCLINE HYCLATE 100MG TABLET PO SCH ×2 (09:00→20:28)
[2023-02-06] MEDS ORDERED: PERCOCET 5MG/325MG TAB PO PRN (12:15)
[2023-02-06 14:00] VITALS: BP 129/64; TEMP 98.4; O2SAT 96
[2023-02-06] MEDS: LIDOCAINE 5% (LIDODERM) PATCH TD SCH (20:28)
[2023-02-06 22:00] VITALS: BP 101/49; TEMP 97.5; O2SAT 95
[2023-02-07] MEDS: KETOROLAC 30 MG/ML 1ML VIAL IV SCH ×2 (01:55→08:14)
[2023-02-07 05:40] LABS: HEMATOCRIT 40.4 % (42.0-52.0); HEMOGLOBIN 13.2 g/dl (13.5-17.5); MEAN CORPUSCULAR HEMOGLOBIN 30.6 pg (27.0-33.0); MEAN CORPUSCULAR HGB CONC 32.7 g/dl (32.0-36.5); MEAN CORPUSCULAR VOLUME 93.5 fl (80.0-96.0); PLATELET COUNT, AUTOMATED 195 10^3/uL (150-450); RED BLOOD COUNT 4.32 10^6/uL (4.30-6.10); WHITE BLOOD COUNT 8.9 10^3/uL (4.0-10.0)
[2023-02-07 06:00] VITALS: BP 132/63; TEMP 98.1; O2SAT 97
[2023-02-07 06:05] LABS: BLOOD UREA NITROGEN 19 MG/DL (9-23); CALCIUM LEVEL 8.6 MG/DL (8.3-10.6); CARBON DIOXIDE LEVEL 29 MMOL/L (20-31); CHLORIDE LEVEL 106 MMOL/L (98-107); CREATININE FOR GFR 0.97 MG/DL (0.70-1.30); GLOMERULAR FILTRATION RATE > 60.0 (>42); GLUCOSE, FASTING 80 MG/DL (74-106); POTASSIUM SERUM 4.6 MMOL/L (3.5-5.1); SODIUM LEVEL 140 MMOL/L (136-145)
[2023-02-07] MEDS: SENOKOT S TAB PO SCH (08:13)
[2023-02-07] MEDS: tiZANidine 4 MG TAB PO SCH (08:13)
[2023-02-07] MEDS: DOXYCYCLINE HYCLATE 100MG TABLET PO SCH (08:13)
[2023-02-07] MEDS ORDERED: PERCOCET PO (11:36)
[2023-02-07] MEDS ORDERED: TIZA2CAP PO (11:36)
== END 2023-02-07 13:21 | disposition home or self-care (01) | DRG 347 ==
LOC: M ED 12:45 → EDBD 12:45 → M ED INP 12:46 → OBSVTOIN 12:46 → M MSPAV 20:30
PROVIDERS: ADMIT Internal Medicine Nephrology; ATTEND Internal Medicine
DX: M54.50 Low back pain, unspecified (principal); A69.20 Lyme disease, unspecified; E11.9 Type 2 diabetes mellitus without complications; M54.2 Cervicalgia; I10 Essential (primary) hypertension; M19.90 Unspecified osteoarthritis, unspecified site; L30.9 Dermatitis, unspecified; M62.838 Other muscle spasm; J61 Pneumoconiosis due to asbestos and other mineral fibers